=== PATIENT | female | born 1960 | race Caucasian/White ===

== ENCOUNTER → 2016-09-29 | Outpatient (CLI) | payer OTHER | END | disposition home or self-care (01) | LOC: CFH 14:32 | PROVIDERS: ATTEND Obstetrics & Gynecology | DX: Z12.31 Encounter for screening mammogram for malignant neoplasm of breast (principal) | CPT/HCPCS: G0202 ==

== ENCOUNTER → 2016-10-19 | Outpatient (CLI) | payer OTHER | END | disposition home or self-care (01) | LOC: RAD 14:14 | PROVIDERS: ATTEND Obstetrics & Gynecology | DX: N83.201 Unspecified ovarian cyst, right side (principal); N85.4 Malposition of uterus; N85.8 Other specified noninflammatory disorders of uterus | CPT/HCPCS: 36415; 76830; 85025; 85651; 86304 ==

== ENCOUNTER 2016-10-20 13:22 | Emergency (ER) | payer OTHER ==
[~2016-10-20] VITALS: Ht 162.6 cm; Wt 76.6 kg
[2016-10-20] MEDS ORDERED: SODIUM CHLORIDE 0.9% 1,000ML IVBOLUS ONE (14:00)
[2016-10-20] MEDS ORDERED: SODIUM CHLORIDE FLUSH 10ML SYR IVF ONE (14:00)
[2016-10-20 14:32] LABS: BLOOD UREA NITROGEN 15 mg/dL (7-18)
[2016-10-20 14:42] LABS: ASPARTATE AMINO TRANSFERASE 14 U/L (15-37)
[2016-10-20 16:14] VITALS: BP 115/82
== END 2016-10-20 16:17 | disposition home or self-care (01) ==
LOC: ED 15:13
DX: R10.32 Left lower quadrant pain (principal)
CPT/HCPCS: 36415; 74022; 80053; 81003; 85025

== ENCOUNTER → 2016-10-21 | Outpatient (CLI) | payer OTHER ==
[~2016-10-21] MED LIST: OMNIPAQUE 350 MG/ML, 100ML BOTTLE ONE
== END | disposition home or self-care (01) ==
LOC: CFH 10:41
PROVIDERS: ATTEND Obstetrics & Gynecology
DX: N20.0 Calculus of kidney (principal); K76.0 Fatty (change of) liver, not elsewhere classified; K42.9 Umbilical hernia without obstruction or gangrene; K76.89 Other specified diseases of liver; M47.896 Other spondylosis, lumbar region
CPT/HCPCS: 74178; Q9967

== ENCOUNTER → 2017-01-05 | Outpatient (CLI) | payer OTHER ==
[~2017-01-05] MED LIST changes: +ERGO500017 PO; +ESTR1PAT65 TP; +IBUP200T64 PO; +NAPR220C2 PO; -OMNIPAQUE 350 MG/ML, 100ML BOTTLE ONE; +PROG100C4 PO
== END | disposition home or self-care (01) ==
LOC: STAR 14:16
PROVIDERS: ATTEND Surgery
DX: Z02.9 Encounter for administrative examinations, unspecified (principal)

== ENCOUNTER → 2017-01-20 | Day surgery (SDC) | payer OTHER ==
[~2017-01-20] VITALS: Ht 162.6 cm; Wt 75.5 kg
[~2017-01-20] MED LIST changes: +ACETAMINOPHEN 325 MG TABLET PO PRN; +ACETAMINOPHEN 650 MG/20.3 ML UDC ONE; +ALBUTEROL SULFATE 2.5 MG/3 ML NPPB PRN; +BUPIVACAINE/PF 0.5% ONE; +CEFAZOLIN 1,000 MG ONE; +DEXAMETHASONE 4 MG/ML, 1ML ONE; +EPHEDRINE 50 MG/ML, 1ML IVPush PRN; +EPINEPHRINE 1 MG/ML, 1ML ONE; +FENTANYL PF 100 MCG/2ML IV PRN; +FENTANYL PF 100 MCG/2ML ONE; +HYDROcodone/APAP 7.5-325MG/15ML UDC PO PRN; +HYDROmorphone 1 MG/ML, 1ML ONE; +KETOROLAC 30 MG/1 ML ONE; +LABETALOL 5MG/ML, 20ML IV PRN; +LACTATED RINGERS 1,000 ML IV SCH; +MEPERIDINE/PF 25MG/0.5ML IVPush PRN; +METOPROLOL 1 MG/ML, 5ML IV PRN; +MIDAZOLAM 1 MG/ML, 2ML IV PRN; +MIDAZOLAM 1 MG/ML, 2ML ONE; +ONDANSETRON 2MG/ML, 2ML IVPush PRN; +ONDANSETRON 2MG/ML, 2ML ONE; +OXYcodone 5 MG/5 ML ORAL.SOL UDC ONE; +OXYcodone 5 MG/5 ML ORAL.SOL UDC PO PRN; +OXYcodone IR 5MG TABLET PO PRN; +PROG100C16 PO; -PROG100C4 PO; +PROMETHAZINE 25 MG/ML, 1ML IV PRN; +PROMETHAZINE 25 MG/ML, 1ML ONE; +PROMETHAZINE 25MG TABLET PO PRN; +PROPOFOL 10 MG/ML, 20ML ONE; +hydrALAzine 20 MG/ML, 1ML IV PRN
[2017-01-20 07:38] VITALS: BP 126/75
[2017-01-20] MEDS: HYDROmorphone 1 MG/ML, 1ML IV PRN ×2 (10:30→10:57)
== END ==
LOC: OUT 06:54
PROVIDERS: ATTEND Surgery
DX: K40.90 Unilateral inguinal hernia, without obstruction or gangrene, not specified as recurrent (principal); Z88.1 Allergy status to other antibiotic agents; Z98.890 Other specified postprocedural states; Z72.89 Other problems related to lifestyle
CPT/HCPCS: 49505; C1781; J0171; J0690; J1100; J1170; J1885; J2250; J2405; J2704; J3010; J3490; J7120; Q0169

== ENCOUNTER → 2018-03-02 | Outpatient (CLI) | payer OTHER ==
[~2018-03-02] MED LIST changes: -ACETAMINOPHEN 325 MG TABLET PO PRN; -ACETAMINOPHEN 650 MG/20.3 ML UDC ONE; -ALBUTEROL SULFATE 2.5 MG/3 ML NPPB PRN; -BUPIVACAINE/PF 0.5% ONE; -CEFAZOLIN 1,000 MG ONE; -DEXAMETHASONE 4 MG/ML, 1ML ONE; -EPHEDRINE 50 MG/ML, 1ML IVPush PRN; -EPINEPHRINE 1 MG/ML, 1ML ONE; -FENTANYL PF 100 MCG/2ML IV PRN; -FENTANYL PF 100 MCG/2ML ONE; -HYDROcodone/APAP 7.5-325MG/15ML UDC PO PRN; -HYDROmorphone 1 MG/ML, 1ML ONE; -KETOROLAC 30 MG/1 ML ONE; -LABETALOL 5MG/ML, 20ML IV PRN; -LACTATED RINGERS 1,000 ML IV SCH; -MEPERIDINE/PF 25MG/0.5ML IVPush PRN; -METOPROLOL 1 MG/ML, 5ML IV PRN; -MIDAZOLAM 1 MG/ML, 2ML IV PRN; -MIDAZOLAM 1 MG/ML, 2ML ONE; -ONDANSETRON 2MG/ML, 2ML IVPush PRN; -ONDANSETRON 2MG/ML, 2ML ONE; -OXYcodone 5 MG/5 ML ORAL.SOL UDC ONE; -OXYcodone 5 MG/5 ML ORAL.SOL UDC PO PRN; -OXYcodone IR 5MG TABLET PO PRN; -PROMETHAZINE 25 MG/ML, 1ML IV PRN; -PROMETHAZINE 25 MG/ML, 1ML ONE; -PROMETHAZINE 25MG TABLET PO PRN; -PROPOFOL 10 MG/ML, 20ML ONE; -hydrALAzine 20 MG/ML, 1ML IV PRN
== END | disposition home or self-care (01) ==
LOC: CFH 15:18
PROVIDERS: ATTEND Family Medicine
DX: Z12.31 Encounter for screening mammogram for malignant neoplasm of breast (principal)
CPT/HCPCS: 77067

== ENCOUNTER → 2018-04-12 | Outpatient (CLI) | payer OTHER ==
[2018-04-12 08:10] LABS: HCT (SEDRATE) 41.4 % (34.6-47.8)
== END | disposition home or self-care (01) ==
LOC: LAB 07:50
PROVIDERS: ATTEND Physician Assistant
DX: M25.50 Pain in unspecified joint (principal)
CPT/HCPCS: 36415; 85651; 86038; 86140; 86225; 86235; 86430

== ENCOUNTER → 2018-05-13 | Outpatient (CLI) | payer OTHER ==
[2018-05-13 08:21] LABS: BASOPHILS # (AUTO) 0.02 x10^3/uL (0-0.1); BASOPHILS % (AUTO) 1 % (0-1); EOSINOPHILS % (AUTO) 4 % (1-7); LYMPHOCYTES # (AUTO) 1.26 x10^3/uL (1-3.4); LYMPHOCYTES % (AUTO) 26 % (22-44); MD NO; MEAN CORPUSCULAR HEMOGLOBIN 31.4 pg (27.0-34.8); MEAN CORPUSCULAR HGB CONC 33.4 g/dL (32.4-35.8); MEAN CORPUSCULAR VOLUME 94.1 fL (80-100); MONOCYTES # (AUTO) 0.32 x10^3/uL (0.2-0.8); MONOCYTES % (AUTO) 7 % (2-9); NEUTROPHILS # (AUTO) 2.95 x10^3/uL (1.8-6.8); NEUTROPHILS % (AUTO) 62 % (42-75); PLATELET COUNT 170 x10^3/uL (130-400); RED BLOOD COUNT 4.28 x10^6/uL (3.82-5.3)
[2018-05-13 08:40] LABS: HEMOGLOBIN A1C 5.6 % (4.2-6.3)
[2018-05-13 08:49] LABS: ALBUMIN 4.3 g/dL (3.4-5.0); ANION GAP 8 mmol/L (5-15); CALCIUM 8.2 mg/dL (8.5-10.1); CHLORIDE 109 mmol/L (98-107)
[2018-05-13 09:14] LABS: ALANINE AMINOTRANSFERASE 25 U/L (12-78); ALKALINE PHOSPHATASE 64 U/L (45-117); BILIRUBIN,TOTAL 0.5 mg/dL (0.2-1.0); CHOL/HDL RATIO 2.2; CHOLESTEROL, TOTAL 182 mg/dL (140-239); CREATININE 0.71 mg/dL (0.55-1.02); HDL CHOL % 46 % (28-40); HDL CHOLESTEROL (DIRECT) 84 mg/dL (40-60); TRIGLYCERIDES 55 mg/dL (50-200); VLDL CHOLESTEROL 11 mg/dL (0-25)
[2018-05-13 09:15] LABS: FOLATE LEVEL 14.4 ng/mL (3.1-17.5); LDL CHOLESTEROL,CALCULATED 87 mg/dL (54-169)
== END | disposition home or self-care (01) ==
LOC: LAB 08:00
PROVIDERS: ATTEND Family Medicine
DX: Z13.220 Encounter for screening for lipoid disorders (principal); E55.9 Vitamin D deficiency, unspecified; E78.5 Hyperlipidemia, unspecified; M25.50 Pain in unspecified joint; R53.83 Other fatigue; R73.9 Hyperglycemia, unspecified
CPT/HCPCS: 36415; 80053; 80061; 82607; 82746; 83036; 83735; 84443; 85025

== ENCOUNTER → 2018-08-08 | Outpatient (CLI) | payer OTHER | END | disposition home or self-care (01) | LOC: RAD 15:39 | PROVIDERS: ATTEND Physical Medicine & Rehabilitation | DX: M47.816 Spondylosis without myelopathy or radiculopathy, lumbar region (principal); M51.36 Other intervertebral disc degeneration, lumbar region; M48.061 Spinal stenosis, lumbar region without neurogenic claudication; M51.26 Other intervertebral disc displacement, lumbar region; N94.89 Other specified conditions associated with female genital organs and menstrual cycle | CPT/HCPCS: 72148 ==

== ENCOUNTER 2019-03-25 10:24 | Emergency (ER) | payer OTHER ==
[~2019-03-25] VITALS: Ht 162.6 cm; Wt 73.4 kg
[2019-03-25 10:52] VITALS: BP 132/88
--- NOTE | 2019-03-25 10:52 | NUR ---
PT HERE S/P [facility] TUESDAY. PT STATES HIT HEAD, - LOC, R EYEBROW BRUISE/LACERATION WITH STERI STRIPS. PT STATES LAST NIGHT SHE EXPERIENCED A HEADACHE, DIZZINESS, NAUSEA, AND WEAKNESS. PT AAO X 4, NAD, ABLE TO RECALL EVENTS, ROOM AIR, CALL LIGHT WITHIN REACH. SIDERAIL UP AND IN PLACE.
[2019-03-25] MEDS ORDERED: ONDANSETRON ODT 4 MG ONE (10:54)
[2019-03-25] MEDS ORDERED: IBUPROFEN 600 MG TABLET ONE (10:54)
--- NOTE | 2019-03-25 10:58 | NUR ---
PT MEDICATED PER MAR.
[2019-03-25] MEDS ORDERED: IBUPROFEN 200 MG TABLET PO ONE (11:00)
[2019-03-25] MEDS ORDERED: ONDANSETRON ODT 4 MG PO ONE (11:00)
--- NOTE | 2019-03-25 11:19 | NUR ---
PT TO CT.
--- NOTE | 2019-03-25 11:31 | NUR ---
PT BACK FROM CT.
--- NOTE | 2019-03-25 11:53 | NUR ---
ALL RESULTS BACK AT THIS TIME, CHART UP FOR RECHECK.
--- NOTE | 2019-03-25 12:42 | NUR ---
Patient/Caregiver given discharge instructions and they have confirmed that they understand the instructions. Patient ambulatory with steady gait.
== END 2019-03-25 12:42 | disposition home or self-care (01) ==
LOC: ED 11:13
DX: G44.311 Acute post-traumatic headache, intractable (principal)
CPT/HCPCS: 70450; 99284; Q0162

== ENCOUNTER → 2019-05-29 | Outpatient (CLI) | payer OTHER ==
[2019-05-29 11:10] LABS: BASOPHILS # (AUTO) 0.03 x10^3/uL (0-0.1); BASOPHILS % (AUTO) 1 % (0-1); EOSINOPHILS # (AUTO) 0.22 x10^3/uL (0-0.4); EOSINOPHILS % (AUTO) 5 % (1-7); LYMPHOCYTES # (AUTO) 1.31 x10^3/uL (1-3.4); LYMPHOCYTES % (AUTO) 30 % (22-44); MD NO; MEAN CORPUSCULAR HEMOGLOBIN 31.4 pg (27.0-34.8); MEAN CORPUSCULAR HGB CONC 33.1 g/dL (32.4-35.8); MEAN CORPUSCULAR VOLUME 94.6 fL (80-100); MEAN PLATELET VOLUME 8.3 fL (7.4-10.4); MONOCYTES # (AUTO) 0.39 x10^3/uL (0.2-0.8); MONOCYTES % (AUTO) 9 % (2-9); NEUTROPHILS # (AUTO) 2.37 x10^3/uL (1.8-6.8); NEUTROPHILS % (AUTO) 55 % (42-75); PLATELET COUNT 166 x10^3/uL (130-400); RED BLOOD COUNT 4.21 x10^6/uL (3.82-5.3); RED CELL DISTRIBUTION WIDTH 13.3 % (9.6-15.2)
[2019-05-29 11:18] LABS: HCT (SEDRATE) 39.9 % (34.6-47.8)
== END | disposition home or self-care (01) ==
LOC: LAB 10:49
PROVIDERS: ATTEND Obstetrics & Gynecology
DX: R10.31 Right lower quadrant pain (principal); R10.32 Left lower quadrant pain
CPT/HCPCS: 36415; 85025; 85651; 86304

== ENCOUNTER → 2019-10-08 | Outpatient (CLI) | payer OTHER ==
[2019-10-08 08:03] LABS: BASOPHILS # (AUTO) 0.02 x10^3/uL (0-0.1); BASOPHILS % (AUTO) 1 % (0-1); EOSINOPHILS % (AUTO) 5 % (1-7); LYMPHOCYTES # (AUTO) 1.17 x10^3/uL (1-3.4); LYMPHOCYTES % (AUTO) 28 % (22-44); MD NO; MEAN CORPUSCULAR HEMOGLOBIN 31.8 pg (27.0-34.8); MEAN CORPUSCULAR HGB CONC 33.7 g/dL (32.4-35.8); MEAN CORPUSCULAR VOLUME 94.3 fL (80-100); MEAN PLATELET VOLUME 8.5 fL (7.4-10.4); MONOCYTES # (AUTO) 0.31 x10^3/uL (0.2-0.8); MONOCYTES % (AUTO) 8 % (2-9); NEUTROPHILS # (AUTO) 2.44 x10^3/uL (1.8-6.8); NEUTROPHILS % (AUTO) 59 % (42-75); PLATELET COUNT 172 x10^3/uL (130-400); RED BLOOD COUNT 4.33 x10^6/uL (3.82-5.3); RED CELL DISTRIBUTION WIDTH 12.8 % (9.6-15.2)
[2019-10-08 08:19] LABS: ALANINE AMINOTRANSFERASE 24 U/L (12-78); ALBUMIN 3.9 g/dL (3.4-5.0); ANION GAP 5 mmol/L (5-15); CALCIUM 8.7 mg/dL (8.5-10.1); CHLORIDE 108 mmol/L (98-107); CHOLESTEROL, TOTAL 178 mg/dL (140-239); CREATININE 0.79 mg/dL (0.55-1.02)
[2019-10-08 08:27] LABS: ALKALINE PHOSPHATASE 68 U/L (45-117); BILIRUBIN,TOTAL 0.8 mg/dL (0.2-1.0); CHOL/HDL RATIO 2.4; HDL CHOL % 42 % (28-40); HDL CHOLESTEROL (DIRECT) 74 mg/dL (40-60); LDL CHOLESTEROL,CALCULATED 86 mg/dL (54-169); LDL/HDL RATIO 1.2 (0.5-3.0); TOTAL PROTEIN 7.3 g/dL (6.4-8.2); TRIGLYCERIDES 88 mg/dL (50-200); VLDL CHOLESTEROL 18 mg/dL (0-25)
== END | disposition home or self-care (01) ==
LOC: LAB 07:10
PROVIDERS: ATTEND Family Medicine
DX: Z13.220 Encounter for screening for lipoid disorders (principal); A04.8 Other specified bacterial intestinal infections; E55.9 Vitamin D deficiency, unspecified; R53.83 Other fatigue; R73.09 Other abnormal glucose
CPT/HCPCS: 36415; 80053; 80061; 82306; 83036; 84439; 84443; 85025; 87338

== ENCOUNTER → 2020-03-24 | Outpatient (CLI) | payer OTHER | END | disposition home or self-care (01) | LOC: CFH 15:01 | PROVIDERS: ATTEND Obstetrics & Gynecology | DX: Z12.31 Encounter for screening mammogram for malignant neoplasm of breast (principal) | CPT/HCPCS: 77063; 77067 ==

== ENCOUNTER → 2020-06-25 | Outpatient (CLI) | payer OTHER ==
[2020-06-25 14:25] LABS: HIGH-SENSITIVITY CRP 0.3 mg/dL (0.02-0.30)
== END | disposition home or self-care (01) ==
LOC: LAB 13:50
PROVIDERS: ATTEND Obstetrics & Gynecology
DX: R53.83 Other fatigue (principal); N95.1 Menopausal and female climacteric states; E34.9 Endocrine disorder, unspecified
CPT/HCPCS: 36415; 82306; 82670; 83001; 83036; 84443; 86141

== ENCOUNTER 2020-07-03 14:23 | Outpatient (CLI) | payer OTHER | END 2020-07-03 23:59 | disposition home or self-care (01) | LOC: LAB 14:23 | PROVIDERS: ATTEND Obstetrics & Gynecology | DX: N95.1 Menopausal and female climacteric states (principal) | CPT/HCPCS: 36415; 82670 ==

== ENCOUNTER → 2020-09-22 | Outpatient (CLI) | payer OTHER | END | disposition home or self-care (01) | LOC: CFH 08:21 | PROVIDERS: ATTEND Physician Assistant | DX: R91.8 Other nonspecific abnormal finding of lung field (principal); R93.89 Abnormal findings on diagnostic imaging of other specified body structures; R06.02 Shortness of breath | CPT/HCPCS: 71250 ==

== ENCOUNTER → 2020-10-01 | Outpatient (CLI) | payer OTHER | END | disposition home or self-care (01) | LOC: PETCFH 12:38 | PROVIDERS: ATTEND Physician Assistant | DX: R91.8 Other nonspecific abnormal finding of lung field (principal); R93.89 Abnormal findings on diagnostic imaging of other specified body structures; N28.1 Cyst of kidney, acquired | CPT/HCPCS: 78815; A9552 ==

== ENCOUNTER → 2020-10-17 | Outpatient (CLI) | payer OTHER ==
[2020-10-17 12:53] LABS: BASOPHILS % (AUTO) 1 % (0-1); EOSINOPHILS % (AUTO) 3 % (1-7); LYMPHOCYTES % (AUTO) 25 % (22-44); MEAN CORPUSCULAR HEMOGLOBIN 31.5 pg (27.0-34.8); MEAN CORPUSCULAR HGB CONC 33.8 g/dL (32.4-35.8); MEAN PLATELET VOLUME 9.6 fL (7.4-10.4); MONOCYTES % (AUTO) 8 % (2-9); NEUTROPHILS % (AUTO) 64 % (42-75); PLATELET COUNT 169 x10^3/uL (130-400); RED BLOOD COUNT 4.46 x10^6/uL (3.82-5.3); RED CELL DISTRIBUTION WIDTH 13.2 % (9.6-15.2)
[2020-10-17 12:55] LABS: MD NO
[2020-10-17 12:59] LABS: CHLORIDE 107 mmol/L (98-107)
[2020-10-17 13:11] LABS: ALANINE AMINOTRANSFERASE 40 U/L (12-78); ALBUMIN 4.1 g/dL (3.4-5.0); ALKALINE PHOSPHATASE 71 U/L (45-117); ANION GAP 3 mmol/L (5-15); BILIRUBIN,TOTAL 0.7 mg/dL (0.2-1.0); CREATININE 0.73 mg/dL (0.55-1.02); TOTAL PROTEIN 7.4 g/dL (6.4-8.2)
== END | disposition home or self-care (01) ==
LOC: STAR 11:37
PROVIDERS: ATTEND Thoracic Surgery (Cardiothoracic Vascular Surgery)
DX: Z01.812 Encounter for preprocedural laboratory examination (principal); Z20.822 Contact with and (suspected) exposure to COVID-19; Z01.818 Encounter for other preprocedural examination
CPT/HCPCS: 36415; 80053; 85025; 93005; U0003; U0005

== ENCOUNTER 2020-10-22 05:46 | Inpatient (IN) | payer OTHER ==
[~2020-10-22] VITALS: Ht 162.6 cm; Wt 83.8 kg
[2020-10-22] MEDS ORDERED: BUPIVACAINE/PF 0.5% ONE (06:47)
[2020-10-22] MEDS ORDERED: EPINEPHRINE 1 MG/ML, 1ML ONE (06:47)
[2020-10-22] MEDS ORDERED: TALC 4 GM VIAL ONE (06:47)
[2020-10-22] MEDS ORDERED: OMEP40CA42 PO (06:51)
[2020-10-22] MEDS ORDERED: CHLORHEXIDINE 15 ML UDC PO ONE (07:00)
[2020-10-22] MEDS ORDERED: LACTATED RINGERS 1,000 ML IV SCH ×2 (07:00→10:00)
[2020-10-22] MEDS ORDERED: FENTANYL PF 250 MCG/5ML ONE (07:09)
[2020-10-22] MEDS ORDERED: MIDAZOLAM 1 MG/ML, 2ML ONE (07:09)
[2020-10-22] MEDS ORDERED: HYDROmorphone 1 MG/ML, 1ML INJ IVPush PRN (07:30)
[2020-10-22] MEDS ORDERED: ALBUTEROL SULFATE 2.5 MG/3 ML NPPB PRN (07:30)
[2020-10-22] MEDS ORDERED: ACETAMINOPHEN 325 MG TABLET PO PRN ×2 (07:30→10:00)
[2020-10-22] MEDS ORDERED: MEPERIDINE/PF 25MG/0.5ML IVPush PRN (07:30)
[2020-10-22] MEDS ORDERED: PROMETHAZINE 25 MG/ML, 1ML IVPush PRN (07:30)
[2020-10-22] MEDS ORDERED: OXYcodone 5 MG/5 ML ORAL.SOL UDC PO PRN (07:30)
[2020-10-22] MEDS ORDERED: LABETALOL 5MG/ML, 20ML IV PRN (07:30)
[2020-10-22] MEDS ORDERED: MIDAZOLAM 1 MG/ML, 2ML IV PRN (07:30)
[2020-10-22] MEDS ORDERED: PHENYLEPHRINE 10 MG/ML ONE (07:36)
[2020-10-22] MEDS ORDERED: DEXAMETHASONE 4 MG/ML, 1ML ONE (07:36)
[2020-10-22] MEDS ORDERED: ROCURONIUM 10MG/ML,5ML ONE (09:26)
[2020-10-22] MEDS ORDERED: NEOSTIGMINE 1 MG/ML, 10ML ONE (09:26)
[2020-10-22] MEDS ORDERED: PROPOFOL 10 MG/ML, 20ML ONE (09:26)
[2020-10-22] MEDS ORDERED: ONDANSETRON 2MG/ML, 2ML ONE (09:26)
[2020-10-22] MEDS ORDERED: GLYCOPYRROLATE 0.2MG/1ML, 5ML ONE (09:26)
[2020-10-22] MEDS ORDERED: CEFAZOLIN 1,000 MG ONE (09:26)
[2020-10-22] MEDS: FENTANYL PF 100 MCG/2ML IV PRN ×3 (09:40→10:10)
[2020-10-22] MEDS ORDERED: ACETAMINOPHEN 650 MG/20.3 ML UDC ONE (09:42)
[2020-10-22] MEDS ORDERED: FENTANYL PF 100 MCG/2ML ONE ×2 (09:42→10:08)
[2020-10-22] MEDS ORDERED: OXYcodone 5 MG/5 ML ORAL.SOL UDC ONE (09:42)
[2020-10-22] MEDS ORDERED: FAMOTIDINE 20 MG/2 ML IVPush SCH (10:00)
[2020-10-22] MEDS ORDERED: LORazepam 2 MG/ML, 1ML IVPush PRN (10:00)
[2020-10-22] MEDS ORDERED: DIPHENHYDRAMINE 50 MG/ML, 1ML IVPush PRN (10:00)
[2020-10-22] MEDS ORDERED: ENALAPRILAT 1.25 MG/ML, 2ML IVPush PRN (10:00)
[2020-10-22] MEDS ORDERED: morphine SULFATE 10 MG/ML, 1ML IVPush PRN (10:00)
[2020-10-22] MEDS ORDERED: DIPHENHYDRAMINE 25 MG CAPSULE PO PRN (10:00)
[2020-10-22] MEDS ORDERED: hydrALAzine 20 MG/ML, 1ML IVPush PRN (10:00)
[2020-10-22] MEDS ORDERED: HYDROmorphone 1 MG/ML, 1ML INJ ONE (10:28)
[2020-10-22] MEDS ORDERED: KETOROLAC 30 MG/1 ML ONE (10:33)
[2020-10-22] MEDS: KETOROLAC 30 MG/1 ML IVPush PRN (10:34)
[2020-10-22] MEDS ORDERED: LORazepam 0.5MG TABLET PO PRN (11:00)
[2020-10-22 12:40] VITALS: BP 111/74
[2020-10-22] MEDS: ONDANSETRON 2MG/ML, 2ML IVPush PRN ×2 (14:16→21:58)
[2020-10-22] MEDS: HYDROcodone/APAP 5/325 TABLET PO PRN ×2 (14:47→21:57)
[2020-10-22] MEDS: FAMOTIDINE 20 MG TABLET PO SCH (17:47)
[2020-10-22 20:00] VITALS: BP 131/80
[2020-10-23 00:49] VITALS: BP 107/70
[2020-10-23] MEDS: FAMOTIDINE 20 MG TABLET PO SCH ×2 (04:43→17:26)
[2020-10-23] MEDS: HYDROcodone/APAP 5/325 TABLET PO PRN (04:43)
[2020-10-23] MEDS: ONDANSETRON 2MG/ML, 2ML IVPush PRN (04:43)
[2020-10-23 05:31] LABS: BASOPHILS % (AUTO) 0 % (0-1); EOSINOPHILS % (AUTO) 0 % (1-7); LYMPHOCYTES % (AUTO) 10 % (22-44); MEAN CORPUSCULAR HEMOGLOBIN 31.3 pg (27.0-34.8); MEAN CORPUSCULAR HGB CONC 33.5 g/dL (32.4-35.8); MEAN PLATELET VOLUME 9.3 fL (7.4-10.4); MONOCYTES % (AUTO) 7 % (2-9); NEUTROPHILS % (AUTO) 83 % (42-75); PLATELET COUNT 138 x10^3/uL (130-400); RED BLOOD COUNT 3.75 x10^6/uL (3.82-5.3); RED CELL DISTRIBUTION WIDTH 13.1 % (9.6-15.2)
[2020-10-23 05:32] LABS: MD NO
[2020-10-23 05:43] LABS: ANION GAP 4 mmol/L (5-15); CALCIUM 7.8 mg/dL (8.5-10.1); CHLORIDE 107 mmol/L (98-107)
[2020-10-23 05:44] LABS: CREATININE 0.54 mg/dL (0.55-1.02)
[2020-10-23 06:30] VITALS: BP 113/63
[2020-10-23] MEDS: PROGESTERONE 100 MG CAPSULE PO SCH (08:03)
[2020-10-23] MEDS: ENOXAPARIN 40 MG/0.4 ML SQ SCH (08:03)
[2020-10-23] MEDS: KETOROLAC 30 MG/1 ML IVPush PRN ×3 (08:16→23:34)
[2020-10-23] MEDS ORDERED: HYDR-2214 PO (08:42)
[2020-10-23 12:34] VITALS: BP 115/72
[2020-10-23 20:05] VITALS: BP 122/74
[2020-10-24 02:37] VITALS: BP 107/81
[2020-10-24] MEDS: KETOROLAC 30 MG/1 ML IVPush PRN (05:30)
[2020-10-24] MEDS: FAMOTIDINE 20 MG TABLET PO SCH (05:30)
[2020-10-24 07:10] VITALS: BP 132/79
[2020-10-24] MEDS: PROGESTERONE 100 MG CAPSULE PO SCH (08:00)
[2020-10-24] MEDS: ENOXAPARIN 40 MG/0.4 ML SQ SCH (08:01)
== END 2020-10-24 09:23 | disposition home or self-care (01) | DRG 165 ==
LOC: ORIP 05:46 → 4NE 11:24 → DCLOUNGE 10-24 09:09
PROVIDERS: ADMIT Thoracic Surgery (Cardiothoracic Vascular Surgery); ATTEND Thoracic Surgery (Cardiothoracic Vascular Surgery)
PROC: 0BBG4ZX Excision of Left Upper Lung Lobe, Percutaneous Endoscopic Approach, Diagnostic (ICD-10-PCS; 2020-10-22)
PROC: 0BTG0ZZ Resection of Left Upper Lung Lobe, Open Approach (ICD-10-PCS; principal; 2020-10-22 07:30)
DX: C34.12 Malignant neoplasm of upper lobe, left bronchus or lung (principal); Z88.2 Allergy status to sulfonamides
CPT/HCPCS: 36415; S0020; 71045; 80048; 85025; 86850; 86900; 86923; 88305; 88309; 88331; C1729; G0378; J0171; J0690; J1100; J1650; J1885; J2250; J2405; J2704; J2710; J3010; J2370; J7120

== ENCOUNTER 2020-12-08 10:28 | Day surgery (SDC) | payer OTHER ==
[~2020-12-08] VITALS: Ht 158.8 cm; Wt 73.5 kg
[~2020-12-08 10:28] MED LIST changes: +HYDR-2214 PO; +OMEP40CA8 PO; +SUCR1TAB33 PO
[2020-12-08 10:55] VITALS: BP 133/88
[2020-12-08] MEDS ORDERED: ACET-1600 PO (10:59)
[2020-12-08] MEDS ORDERED: CEFAZOLIN PMX 1GM/50ML 50 ML IV ONE (11:00)
[2020-12-08] MEDS ORDERED: SODIUM CHLORIDE 0.9% 1,000 ML IV SCH (11:00)
[2020-12-08] MEDS ORDERED: LIDOCAINE-MPF 1%, 5ML ONE (12:39)
[2020-12-08] MEDS ORDERED: LIDOCAINE 1%, 20ML ONE (12:39)
[2020-12-08] MEDS ORDERED: MIDAZOLAM 1 MG/ML, 5ML ONE (12:52)
[2020-12-08] MEDS ORDERED: FLUMAZENIL 0.1 MG/1 ML, 5ML ONE (12:53)
[2020-12-08] MEDS ORDERED: NALOXONE 1 MG/ML, 2ML ONE (12:53)
[2020-12-08] MEDS ORDERED: FENTANYL PF 100 MCG/2ML ONE (12:53)
== END 2020-12-08 14:45 | disposition home or self-care (01) ==
LOC: OUT 10:28
PROVIDERS: ATTEND Internal Medicine Hematology & Oncology
DX: C34.12 Malignant neoplasm of upper lobe, left bronchus or lung (principal); I10 Essential (primary) hypertension; K21.9 Gastro-esophageal reflux disease without esophagitis; Z79.899 Other long term (current) drug therapy; Z88.2 Allergy status to sulfonamides
CPT/HCPCS: 36561; 76937; 77001; 99156; 99157; C1788; J0690; J1642; J2250; J3010; J7030; J2310